=== PATIENT | female | born 1995 | race Caucasian/White ===

== ENCOUNTER 2023-05-07 17:27 | Emergency (ER) | payer OTHER, SELFPAY ==
[2023-05-07 17:51] VITALS: BP 137/60; PULSE 87; RESP 18; TEMP 36.9; O2SAT 97
--- NOTE | 2023-05-07 17:56 | ED.GENADUL_ITS ---
HPI General Date/Time Provider Initiated Documentation: 05/07/23 17:56 . HPI Narrative: 27 year-old female presents to ED today by POV/ambulating with a chief complaint of R ankle injury with onset this past Sunday, day 5. Quality described as pain at the lateral malleolus into the foot, no radiation to ecchymosis/bruising, inability to ambulate, proximal calf pain, skin changes, patient endorses mild swelling at lateral ankle. Severity is described as moderate. Palliating factors include elevating, icing, OTC analgesics. Provoking factors include nothing specific. Patient not anticoagulated. Related Data Home Medications Medication Instructions Recorded Confirmed Unknown [No Known Home Meds] 05/07/23 05/07/23 Allergies Allergy/AdvReac Type Severity Reaction Status Date / Time pcn AdvReac Intermediate Nausea Uncoded 05/07/23 17:53 General Stated Complaint: Orthopedic KENIA: 4 Review of Systems All systems reviewed & are unremarkable except as noted in HPI and below Exam Narrative Exam Narrative: GENERAL APPEARANCE: Well-nourished, non-toxic, awake and alert, atraumatic, no acute distress. SKIN: Warm, pink, dry, intact, without rashes/lesions/ulcerations. HEAD: Normocephalic, atraumatic, normal hair distribution for gender/age. EYES: Pupils PERRLA, EOMs intact without nystagmus, normal conjunctiva, no exudates on lids/lashes. ENT: Nares patent, no circumoral cyanosis, no facial swelling NECK: Supple, trachea midline, painless cervical ROM. LUNGS/CHEST: Non-labored respirations, normal A/P diameter, symmetrical expansion, no chest wall deformity HEART (CV/PV): Regular rate, R dorsalis pedis pulse 2+, no peripheral edema, no JVD. ABDOMEN: Soft, non-distended, no guarding. MSK: Normal ROM, no swelling/deformity to bilateral UEs or LEs, moving all extremities without weakness, no cyanosis, spine midline without tenderness, normal curvature. R LE: Mild swelling at the right lateral malleolus, sensation intact in the right foot, regular pedal pulses, no ecchymosis, no fibular head tenderness, able to ambulate, R-foot dominant NEURO: Mental Status AAOx4 - alert to person, place, time, events No facial droop, no forehead involvement. Motor: No focal weakness - strength 5/5 in bilateral UEs and LEs, proximal and distal, symmetric. Sensory: sensation intact to light touch globally. Gait normal: patient ambulated without ataxia into ED room. PSYCH: euthymic, cooperative, pleasant, appropriate speech Course Vital Signs Vital signs: Vital Signs Temperature 36.9 C 05/07/23 17:51 Pulse 87 05/07/23 17:51 Respiratory Rate 18 05/07/23 17:51 Blood Pressure 137/60 05/07/23 17:51 Pulse Oximetry 97 05/07/23 17:51 Temperature 36.9 C 05/07/23 17:51 Temperature Source Temporal Artery Scan 05/07/23 17:51 Pulse 87 05/07/23 17:51 Respiratory Rate 18 05/07/23 17:51 Respiratory Effort Normal, Non-Labored 05/07/23 17:53 Blood Pressure 137/60 05/07/23 17:51 Blood Pressure Position Sitting 05/07/23 17:51 Pulse Oximetry 97 05/07/23 17:51 Oxygen Delivery Method Room Air 05/07/23 17:51 Oxygen Flow Rate 0 05/07/23 17:51 Medical Decision Making This dictation utilizes [id number] dictation software and may contain unedited grammatical errors. 27 y/o F presents to ED today with a chief complaint of R ankle pain from tweaking it 5 days ago, mild swelling, no bruising/numbness. Patient is R-foot dominant. Patients' medical history: noncontributory. Family and social history: noncontributory. Pertinent exam findings / vital signs include R LE: Mild swelling at the right lateral malleolus, sensation intact in the right foot, regular pedal pulses, no ecchymosis, no fibular head tenderness, able to ambulate, R-foot dominant. Differential / pathologies of concern include Ankle Sprain, Fracture. Diagnostic studies of: -XR R Foot & Ankle - no acute fracture. Interventions of: -carlita wrap, recommend RICE/APAP/NSAIDs. ED Course/Assessment/Plan: Patient has R ankle sprain, no fracture, NV intact, recommend carlita wrap, APAP/NSAID, RICE therapy- and f/u with ortho for pain past two weeks for ligamentous evaluation. Findings not consistent with fracture/NV Compromise. Disposition of Sprain of Right Ankle. Patient verbalized understanding of the plan and return to ED criteria and e ngaged in shared decision making. Medical Records Medical records reviewed: Yes I reviewed the patient's medical records. Imaging Data Radiologic Study: Imaging: X-Ray Radiologist's impression: XR ANKLE RT COMPLETE XR FOOT RT COMPLETE EXAM: XR ANKLE RT COMPLETE CLINICAL HISTORY: R foot/ankle pain. TECHNIQUE: 2D digital imaging was performed. Three views of the ankle and foot. COMPARISON: CR XR FOOT RT COMPLETE from 05/07/2023 FINDINGS: BONES: No acute fracture is present. No bony destructive lesion is seen. JOINTS: The ankle mortise is normally aligned. SOFT TISSUE: Medial ankle swelling. IMPRESSION: Swelling. No evidence of fracture. Quality:SDOH Health Related Social Needs: No Data to Display [facility] Social History Smoking/Tobacco Use Status: Never Smoking risk assessment performed?: Yes Alcohol Intake: never Drug use: Occasionally Substance use type: marijuana Housing: apartment Discharge Plan Disposition Patient Disposition: Home Condition: Stable Discharge Details Clinical Impression: Sprain of right ankle Primary Care Provider: Unknown,Unknown ED Provider: Jose Fan Home Meds and New Rx's Prescriptions: No Action No Known Home Meds Discharge Instructions Instructions: Ankle Sprain (ED) Additional Instructions: You were seen in the emergency department for the sprain of your right ankle, please keep your ankle wrapped, rest, ice, compress and elevate the ankle as often as possible over the next few days. Please use therapeutic dosing of Tylenol (acetamenophen) & Advil (ibuprofen) in an alternating fashion as follows: Take 1000mg of Tylenol every 6 hours without missing doses- that is 4 times per day. [place] in between the Tylenol dosings, take 400-600mg of Advil also on a 6 hour schedule, that is also 4 times per day. The daily maximum dosing of Tylenol is 4000mg, and the daily maximum dosing of Advil is 2400mg. This is safe to do for weeks. Please note that some common cold medications & prescription pain medications may contain acetamenophen and you need to read OTC drug labels and factor that in to maximum daily dosings. Please follow-up with orthopedics for pain lasting longer than 2 weeks for possible ligamentous evaluation. Stand Alone Forms: Work Release Discharge Data Discharge Date/Time-TO BE ENTERED AT DEPARTURE: 05/07/23 19:06
--- NOTE | 2023-05-07 18:37 | DI.RAD_ITS ---
Exam(s) XR ANKLE RT COMPLETE XR FOOT RT COMPLETE EXAM: XR ANKLE RT COMPLETE CLINICAL HISTORY: R foot/ankle pain. TECHNIQUE: 2D digital imaging was performed. Three views of the ankle and foot. COMPARISON: CR XR FOOT RT COMPLETE from 05/07/2023 FINDINGS: BONES: No acute fracture is present. No bony destructive lesion is seen. JOINTS: The ankle mortise is normally aligned. SOFT TISSUE: Medial ankle swelling. IMPRESSION: Swelling. No evidence of fracture. DATA REPOSITORY: RADIATION DOSE DELIVERED:
== END 2023-05-07 19:06 | disposition home or self-care (01) ==
LOC: ER 05-08 02:08
PROVIDERS: Emergency Provider Physician Assistant
DX: S93.401A Sprain of unspecified ligament of right ankle, initial encounter (principal); X58.XXXA Exposure to other specified factors, initial encounter
CPT/HCPCS: 99283; 73610; 73630

== ENCOUNTER 2023-07-03 15:51 | Emergency (ER) | payer OTHER, SELFPAY ==
[2023-07-03 15:58] VITALS: BP 162/56; PULSE 64; RESP 18; TEMP 36.6; O2SAT 98
[2023-07-03 17:36] LABS: Abs Immature Grans 0.02 10^3/uL (0.0-0.06); Absolute Basophil Count 0.03 10^3/uL (0.0-0.2); Absolute Eosinophil Count 0.21 10^3/uL (0.0-0.7); Absolute Lymphocyte Count 2.05 10^3/uL (1.2-3.4); Absolute Neutrophil Count 4.32 10^3/uL (1.2-6.7); Basophils % 0.4; Eosinophils % 2.9; HCT 44.2 % (36.0-46.0); HGB 14.6 g/dL (11.2-15.7); Immature Grans % 0.3; Lymphocytes % 28.8; MCV 91 fL (80-95); MPV 9.2 fL (8.0-11.0); Neutrophils % 60.6; Platelet Count 268 10^3/uL (130-400); RBC 4.87 10^6/uL (3.93-5.22); RDW 12.4 % (11.7-14.6); WBC 7.13 10^3/uL (4.4-10.8)
[2023-07-03] MEDS: Acetaminophen 500 MG TAB 1000 MG PO (17:40)
[2023-07-03 18:00] LABS: HCG Qual (Serum) Negative
[2023-07-03 18:01] LABS: ALT 31 U/L (14-59); AST 15 U/L (15-37); Albumin 3.6 g/dL (3.4-5.0); Alkaline Phosphatase 88 U/L (46-116); Anion Gap 10.7 mmol/L (3-11); BUN 11 mg/dL (7-18); Bilirubin, Total 0.4 mg/dL (0.2-1.0); CO2 25.3 mmol/L (21.0-32.0); CREATININE 0.7 mg/dL (0.55-1.02); Calcium 8.7 mg/dL (8.5-10.1); Chloride 107 mmol/L (98-107); Estimated GFR 121.49 (mL/min/1.73m2); Glucose 92 mg/dL (74-106); Potassium 3.2 mmol/L (3.5-5.1); Sodium 143 mmol/L (136-145); Total Protein 6.8 g/dL (6.4-8.2)
[2023-07-03 18:50] VITALS: BP 148/85; PULSE 78; RESP 16; TEMP 36.2; O2SAT 98
[2023-07-03] MEDS: Potassium Chloride 20 MEQ TABCR 40 MEQ PO (18:50)
--- NOTE | 2023-07-03 20:42 | ED.GENADUL_ITS ---
Discharge Plan Disposition Patient Disposition: Home Condition: Stable Discharge Details Clinical Impression: Menometrorrhagia Primary Care Provider: Unknown,Unknown ED Provider: Nikki Pacheco Home Meds and New Rx's Prescriptions: No Action No Known Home Meds Discharge Instructions Additional Instructions: Your test was negative today, repeat test in 1 week recommended Take ibuprofen and Tylenol as needed for pain Increase fluids I ordered an outpatient ultrasound, call to schedule your ultrasound Please return earlier should you have new or worsening complaints Your potassium is low, I do recommend having this rechecked in the outpatient setting, you received potassium today Have your blood pressure rechecked by your primary care physician as well HPI General Date/Time Provider Initiated Documentation: 07/03/23 16:19 . HPI Narrative: This 27-year-old female presents with report of vaginal bleeding and pain. Concerned she is having a miscarriage. States she is been off her Depo for about 8 months now. States she is not due for her menses until 14 July. She denies any chest pain or shortness of breath. She denies any dizziness or weakness. She is unsure as to how many pads she is used as she cannot afford pads and has been using toilet paper. She denies history of similar symptoms in the past. Denies risk of sexually transmitted disease. States she has had testing recently which was negative. Related Data Home Medications Medication Instructions Recorded Confirmed Unknown [No Known Home Meds] 05/07/23 07/03/23 Allergies Allergy/AdvReac Type Severity Reaction Status Date / Time pcn AdvReac Intermediate Nausea Uncoded 07/03/23 16:02 General Stated Complaint: [employer] KENIA: 4 Course Vital Signs Vital signs: Vital Signs Temperature 36.6 C 07/03/23 15:58 Pulse 64 07/03/23 15:58 Respiratory Rate 18 07/03/23 15:58 Blood Pressure 162/56 H 07/03/23 15:58 Pulse Oximetry 98 07/03/23 15:58 Temperature 36.2 C L 07/03/23 18:50 Temperature Source Tympanic 07/03/23 15:58 Pulse 78 07/03/23 18:50 Respiratory Rate 16 07/03/23 18:50 Respiratory Effort Normal, Non-Labored 07/03/23 16:22 Blood Pressure 148/85 H 07/03/23 18:50 Blood Pressure Position Sitting 07/03/23 15:58 Pulse Oximetry 98 07/03/23 18:50 Oxygen Delivery Method Room Air 07/03/23 15:58 Oxygen Flow Rate 0 07/03/23 15:58 Pain Level 10 07/03/23 18:50 Lab/Test Results Lab/Test Results: Laboratory Tests Range/Units 07/03/23 17:26 WBC (4.4-10.8) 10^3/uL 7.13 RBC (3.93-5.22) 10^6/uL 4.87 Hgb (11.2-15.7) g/dL 14.6 Hct (36.0-46.0) % 44.2 MCV (80-95) fL 91 MCH (27.0-33.0) pg 30.0 MCHC (32.0-36.0) % 33.0 RDW (11.7-14.6) % 12.4 Plt Count (130-400) 10^3/uL 268 MPV (8.0-11.0) fL 9.2 Immature Gran % 0.3 Neutrophils % 60.6 Lymphocytes % 28.8 Monocytes % 7.0 Eosinophils % 2.9 Basophils % 0.4 Nucleated RBC % (0.0-0.3) % 0.0 Absolute Neutrophils (1.2-6.7) 10^3/uL 4.32 Absolute Lymphocytes (1.2-3.4) 10^3/uL 2.05 Absolute Monocytes (0.1-0.8) 10^3/uL 0.50 Absolute Eosinophils (0.0-0.7) 10^3/uL 0.21 Absolute Basophils (0.0-0.2) 10^3/uL 0.03 Sodium (136-145) mmol/L 143 Potassium (3.5-5.1) mmol/L 3.2 L Chloride (98-107) mmol/L 107 Carbon Dioxide (21.0-32.0) mmol/L 25.3 Anion Gap (3-11) mmol/L 10.7 BUN (7-18) mg/dL 11 Creatinine (0.55-1.02) mg/dL 0.7 Est GFR (CKD-EPI 2020) (mL/min/1.73m2) 121.49 Glucose (74-106) mg/dL 92 Calcium (8.5-10.1) mg/dL 8.7 Total Bilirubin (0.2-1.0) mg/dL 0.4 AST (15-37) U/L 15 ALT (14-59) U/L 31 Alkaline Phosphatase (46-116) U/L 88 Total Protein (6.4-8.2) g/dL 6.8 Albumin (3.4-5.0) g/dL 3.6 Serum HCG, Qual Negative POC- Test(urine) Negative Medical Decision Making 27-year-old female in no acute distress, mild suprapubic tenderness, no flank tenderness Serum quant negative CBC within normal limits, mild hypokalemia at 3.2, supplemented with 40 mill equivalents of potassium Given pads for home As we do not have ultrasound capabilities as it is after for and this is urgent but nonemergent, will order outpatient ultrasound for tomorrow No rebound or guarding, no leukocytosis, afebrile and nontoxic, mild hypertension, referred to establish care with PCP Low suspicion clinically for pelvic inflammatory disease as patient declines any partner and has had negative STD testing recently Return precautions reviewed and patient expressed understanding Quality:SDOH Health Related Social Needs: No Data to Display PFSH All Active Problems (Updated 07/03/23 @ 18:35 by DIANA Gudino) Menometrorrhagia (Acute) Social History Smoking/Tobacco Use Status: Never Smoking risk assessment performed?: Yes Alcohol Intake: never Drug use: Occasionally Substance use type: marijuana Housing: apartment Do you feel safe at home: Yes Do you feel safe in your relationship?: Yes
--- NOTE | 2023-07-03 20:46 | NUR.NOTE ---
pelvic us requisition faxed to [facility], patient instructed to call to schedule any time after 7am 07/03. Referral to Care Management to establish pcp routinely.Nursing Note:
== END 2023-07-03 18:52 | disposition home or self-care (01) ==
PROVIDERS: Emergency Provider Physician Assistant
DX: N92.1 Excessive and frequent menstruation with irregular cycle (principal); E87.6 Hypokalemia
CPT/HCPCS: 80053; 99283; 84703; 85025

== ENCOUNTER 2023-07-04 12:49 | Emergency (ER) | payer OTHER, SELFPAY ==
[2023-07-04 12:50] VITALS: BP 134/85; PULSE 74; RESP 14; TEMP 36.8; O2SAT 98
--- NOTE | 2023-07-04 13:50 | ED.GENADUL_ITS ---
Discharge Plan Disposition Patient Disposition: Home Condition: Stable Discharge Details Chief Complaint: Recheck Clinical Impression: Encounter to discuss test results Primary Care Provider: Unknown,Unknown ED Provider: Carlos Seals Home Meds and New Rx's Prescriptions: No Action No Known Home Meds Discharge Instructions Additional Instructions: Please follow-up with women's wellness to discuss contraceptive options. Please follow-up with the primary care physician. Return to the ER for any worsening or new concerning symptoms Referrals: [facility] [Provider Group] HPI General Mode of arrival: ambulatory . Date/Time Provider Initiated Documentation: 07/04/23 13:03 . Limitations to Documentation: no limitations . Information obtained by: patient . HPI Narrative: 27-year-old female seen here yesterday with concern for miscarriage returns today to discuss testing results. Patient was having heavy vaginal bleeding as well mild suprapubic tenderness yesterday when she presented this has since resolved. She is asymptomatic at this time. Patient had nondiagnostic workup including negative . Patient was advised to return for pelvic ultrasound today. Related Data Home Medications Medication Instructions Recorded Confirmed Unknown [No Known Home Meds] 05/07/23 07/04/23 Allergies Allergy/AdvReac Type Severity Reaction Status Date / Time pcn AdvReac Intermediate Nausea Uncoded 07/04/23 12:59 General Stated Complaint: Recheck KENIA: 4 Review of Systems Genitourinary Genitourinary: Denies pelvic pain and Denies vaginal discharge Exam Const General: cooperative and no acute distress Neuro General: patient alert, patient awake and tone normal Course Vital Signs Vital signs: Vital Signs Temperature 36.8 C 07/04/23 12:50 Pulse 74 07/04/23 12:50 Respiratory Rate 14 07/04/23 12:50 Blood Pressure 134/85 07/04/23 12:50 Pulse Oximetry 98 07/04/23 12:50 Temperature 36.8 C 07/04/23 12:50 Temperature Source Temporal Artery Scan 07/04/23 12:50 Pulse 74 07/04/23 12:50 Respiratory Rate 14 07/04/23 12:50 Respiratory Effort Normal 07/04/23 13:00 Blood Pressure 134/85 07/04/23 12:50 Blood Pressure Position Sitting 07/04/23 12:50 Pulse Oximetry 98 07/04/23 12:50 Oxygen Delivery Method Room Air 07/04/23 12:50 Oxygen Flow Rate 0 07/04/23 12:50 Pain Level 0 07/04/23 12:50 Medical Decision Making Patient was seen here yesterday for menometrorrhagia. She had negative serum hCG. She was advised to come back today for pelvic ultrasound. Pelvic ultrasound was performed today and interpreted by radiology:1. Normal- appearing uterus with endometrial stripe within normal limits. 2. Unremarkable bilateral ovaries. Results were discussed with the patient. Of note, patient states symptoms resolved. She has no pain. Bleeding stopped yesterday. Plan for follow-up with gynecology to discuss contraceptive options. Plan to follow-up with PCP for general care. Patient will need to establish care with a PCP. Quality:SDOH Health Related Social Needs: No Data to Display PFSH All Active Problems Encounter to discuss test results (Acute) Menometrorrhagia (Acute) Social History Smoking/Tobacco Use Status: Never Smoking risk assessment performed?: Yes Alcohol Intake: never Drug use: Occasionally Substance use type: marijuana Housing: apartment Do you feel safe at home: Yes Do you feel safe in your relationship?: Yes
== END 2023-07-04 14:03 | disposition home or self-care (01) ==
PROVIDERS: Emergency Provider Student in an Organized Health Care Education/Training Program
DX: N92.1 Excessive and frequent menstruation with irregular cycle (principal)
CPT/HCPCS: 99282